=== PATIENT | female | born 2000 | race Caucasian/White ===

== ENCOUNTER 2020-02-12 06:07 | Emergency (ER) | payer BC ==
[2020-02-12 06:38] LABS: Bacteria/HPF None Seen HPF (None Seen); Bilirubin Negative (Negative); Blood, Urine Trace (Negative); Clarity Clear (Clear); Glucose, Urine (Dipstick) Normal (Negative); Ketone, Urine Trace mg/dL (Negative); Leukocyte Negative Leu/uL (Negative); Nitrite Negative (Negative); Protein, Urine (Dipstick) Negative (Neg-Trace); RBC/HPF 0-3 HPF (0-3); Specific Gravity, Urine 1.015 (1.002-1.036); Squamous Epithelial 0-3 HPF (0-3); Urobilinogen Normal mg/dL (Less than 2); WBC/HPF 0-3 HPF (0-3); pH, Urine 5.5 (5.0-9.0)
[2020-02-12 06:40] LABS: Pregnancy Test - Urine (BHCG) Negative (Negative); Pregu Control Background? CLEAR/WHITE (CLR/WHITE); Pregu Control Bar Appear? YES (CONTROL BAR); Specific Gravity 1.015 (1.002-1.036)
[2020-02-12] MEDS ORDERED: Morphine 10 MG/ML VIAL ONE (06:49)
[2020-02-12] MEDS ORDERED: Ondansetron ODT 8 MG TAB ONE (06:50)
[2020-02-12] MEDS ORDERED: HYDROcodone/Acetaminophen 5/325 mg Tablet ONE (07:52)
--- NOTE | 2020-02-12 07:57 | CT ---
CT Stone Protocol: 02/12/2020 6:50 AM HISTORY: Diagnosed with kidney stone recently; abdominal pain COMPARISON: 04/01/2018 TECHNIQUE: Multiple contiguous axial images were obtained and a CT of the abdomen and pelvis without IV contrast . Coronal and sagittal reformats were performed. FINDINGS: This examination is limited for the evaluation of solid organs and vascular structures due to the lac k of intravenous contrast. Lower Chest: within normal limits. Abdomen: Liver: within normal limits. Bile Ducts: Normal caliber. Gallbladder: No calcified gallstones. Normal caliber wall. Pancreas: within normal limits. Spleen: within normal limits. Adrenals: within normal limits. Kidneys: Bilateral nonobstructing kidney stones measuring up to 2 mm in size. Mild right hydronephros is. No left hydronephrosis. Pelvis: Reproductive Organs: No pelvic masses. Ureters: 3 mm right ureterovesical junction calcification with mild right hydroureter Bladder: within normal limits. Bowel: Normal caliber. Normal appendix. Mesenteric Lymph Nodes: No enlarged mesenteric lymph nodes. Peritoneum: No free air or stranding changes. There may be a trace amount of free fluid in the pelvis to the left of the rectum. Vessels: Normal caliber aorta Retroperitoneum: within normal limits. Abdominal Wall: within normal limits. Bones: Unremarkable. IMPRESSION: 1. Right distal ureteral calcification with mild right hydronephrosis 2. Bilateral nonobstructing kidney stones
== END 2020-02-12 08:10 | disposition home or self-care (01) ==
LOC: ERS 06:07
DX: N13.2 Hydronephrosis with renal and ureteral calculous obstruction (principal)
CPT/HCPCS: 74176; 81003; 81015; 81025; 96372; J2270; Q0162